=== PATIENT | female | born 1975 | race Caucasian/White ===

== ENCOUNTER → 2019-06-30 09:23 | Outpatient (BNVA) | payer OTHER, SELFPAY | PROVIDERS: Family Provider Nurse Practitioner; Visit Provider Nurse Practitioner | DX: I10 Essential (primary) hypertension (principal); E55.9 Vitamin D deficiency, unspecified; N64.52 Nipple discharge | CPT/HCPCS: 80053; 80061; 82306; 84146 ==

== ENCOUNTER → 2019-07-19 16:09 | Outpatient (BNVA) | payer OTHER, SELFPAY | PROVIDERS: Family Provider Nurse Practitioner; Visit Provider Nurse Practitioner | DX: E03.9 Hypothyroidism, unspecified (principal); Z11.59 Encounter for screening for other viral diseases | CPT/HCPCS: 84439; 84443; 84481; 86705; 86706; 86709; 86803; 87340 ==

== ENCOUNTER 2019-11-05 09:19 | Outpatient (CLI) | payer OTHER, SELFPAY ==
--- NOTE | 2019-11-05 09:24 | MR_ITS ---
WS: [id number] MRI BRAIN WITHOUT AND WITH CONTRAST, ATTENTION DIRECTED TO THE PITUITARY GLAND HISTORY: PITUITARY Mass; pituitary MICROADENOMA W/HYPERPROLACTINEMIA COMPARISON: 12/01/2017 TECHNIQUE: Diffusion-weighted imaging, axial T2 sequence, and postcontrast images in 3 planes are per formed. High-resolution coronal and sagittal imaging performed through the pituitary region with and without intravenous gadolinium. The small, 3 mm possible microadenoma seen in the RIGHT posterior pituitary is not as well visualized today. This small microadenoma may have decreased in size. There is no enlarging mass or abnormal en hancement on today's examination. Pituitary gland is normal size. No enhancing masses. There are no acute infarcts or prior hemorrhage. Supratentorial and infratentorial brain is preserved . No prior infarcts. No inferior displacement of cerebellar tonsils. The ventricles and extra-axial s paces are normal. There are no enhancing masses. No paranasal sinus or mastoid air cell disease. MR/MR pituitary wo/w con* [id number] IMPRESSION: 1. 3 mm microadenoma seen on the prior study of 12/01/2017 is not apparent today . May have decreased in size and resolved with treatment. There are no masses i n the sella turcica. The pituitary gland is negative today. 2. Otherwise MRI brain is normal.
== END 2019-11-05 09:20 | disposition home or self-care (01) ==
LOC: RADSHAW 09:23
PROVIDERS: Family Provider Nurse Practitioner; PCP Nurse Practitioner; Visit Provider Internal Medicine
DX: D35.2 Benign neoplasm of pituitary gland (principal); E22.1 Hyperprolactinemia
CPT/HCPCS: 70553; A9579

== ENCOUNTER 2019-11-05 09:25 | Outpatient (CLI) | payer OTHER, SELFPAY ==
--- NOTE | 2019-11-05 10:15 | US_ITS ---
WS: [id number] RIGHT UPPER QUADRANT ULTRASOUND HISTORY: increased liver enzymes COMPARISON: None available. Liver: 18.5 cm in length. Moderately enlarged liver with diffuse hepatic steatosis. No mass or bile d uct dilatation. Gallbladder: Prior cholecystectomy. CBD: 0.2 cm Pancreas: Pancreas is poorly visualized. Right kidney: 10.8 cm in length. Normal echogenicity with no mass or hydronephrosis. Aorta and IVC: Unremarkable. No ascites. US/US liver [id number] IMPRESSION: 1. Status post cholecystectomy. 2. Moderate hepatomegaly and hepatic steatosis.
== END 2019-11-05 09:26 | disposition home or self-care (01) ==
LOC: RAD 09:26
PROVIDERS: PCP Nurse Practitioner; Visit Provider Nurse Practitioner
DX: R74.8 Abnormal levels of other serum enzymes (principal); R16.0 Hepatomegaly, not elsewhere classified; K76.0 Fatty (change of) liver, not elsewhere classified
CPT/HCPCS: 76705

== ENCOUNTER → 2019-11-24 09:03 | Outpatient (BNVA) | payer OTHER, SELFPAY | PROVIDERS: Family Provider Nurse Practitioner; PCP Nurse Practitioner; Visit Provider Nurse Practitioner | DX: I10 Essential (primary) hypertension (principal); J45.40 Moderate persistent asthma, uncomplicated; F41.1 Generalized anxiety disorder; K21.9 Gastro-esophageal reflux disease without esophagitis; E03.9 Hypothyroidism, unspecified | CPT/HCPCS: 80053; 80061; 84443 ==

== ENCOUNTER → 2019-12-30 16:15 | Outpatient (BNVA) | payer OTHER, SELFPAY | PROVIDERS: Family Provider Nurse Practitioner; PCP Nurse Practitioner; Visit Provider Nurse Practitioner Women's Health | DX: N90.89 Other specified noninflammatory disorders of vulva and perineum (principal) | CPT/HCPCS: 88305 ==

== ENCOUNTER → 2021-02-20 08:30 | Outpatient (BNVA) | payer OTHER, SELFPAY | PROVIDERS: Family Provider Nurse Practitioner; PCP Nurse Practitioner; Referring Provider Family Medicine; Visit Provider Internal Medicine | DX: D35.2 Benign neoplasm of pituitary gland (principal); E03.9 Hypothyroidism, unspecified; E55.9 Vitamin D deficiency, unspecified; L68.0 Hirsutism; N20.0 Calculus of kidney; F17.210 Nicotine dependence, cigarettes, uncomplicated | CPT/HCPCS: 99204 ==

== ENCOUNTER 2021-03-09 08:49 | Outpatient (CLI) | payer OTHER, SELFPAY ==
[2021-03-09 09:58] LABS: Free T4 Free Thyroxine 1.05 ng/dL (0.82-1.77); Thyroid Stimulating Hormone 1.89 uIU/mL (0.27-4.20)
[2021-03-09 10:00] LABS: Calcium 9.2 mg/dL (8.5-10.5)
[2021-03-09 10:07] LABS: Parathyroid Hormone 37.7 pg/mL (15-65)
[2021-03-09 10:22] LABS: Prolactin 14.23 ng/mL (4.8-23.3)
[2021-03-10 09:02] LABS: T3 Total 144 ng/dL (76-181)
[2021-03-12 15:53] LABS: Dehydroepiandrosterone Sulfate 80 mcg/dL (19-231)
[2021-03-13 14:17] LABS: Thyroid Peroxidase Antobodies <1 IU/mL (<9)
== END 2021-03-09 08:50 | disposition home or self-care (01) ==
LOC: LAB 08:54
PROVIDERS: PCP Nurse Practitioner; Visit Provider Internal Medicine
DX: D35.2 Benign neoplasm of pituitary gland (principal); E03.9 Hypothyroidism, unspecified; E55.9 Vitamin D deficiency, unspecified; N20.0 Calculus of kidney; L68.0 Hirsutism
CPT/HCPCS: 36415; 82310; 82627; 83970; 84146; 84403; 84439; 84443; 84480; 86376

== ENCOUNTER → 2021-05-04 09:16 | Outpatient (BNVA) | payer OTHER, SELFPAY | PROVIDERS: PCP Nurse Practitioner; Visit Provider Internal Medicine | DX: D35.2 Benign neoplasm of pituitary gland (principal); E03.9 Hypothyroidism, unspecified; E55.9 Vitamin D deficiency, unspecified; L68.0 Hirsutism | CPT/HCPCS: 84439; 84443; 84480 ==

== ENCOUNTER → 2021-09-10 08:46 | Outpatient (BNVA) | payer OTHER, SELFPAY | PROVIDERS: PCP Nurse Practitioner; Visit Provider Internal Medicine | DX: D35.2 Benign neoplasm of pituitary gland (principal); E03.9 Hypothyroidism, unspecified | CPT/HCPCS: 84146; 84439; 84443; 84480 ==

== ENCOUNTER 2022-02-11 15:20 | Outpatient (CLI) | payer OTHER, SELFPAY ==
--- NOTE | 2022-02-11 15:15 | MR_ITS ---
WS: [id number] MRI BRAIN WITHOUT AND WITH CONTRAST, ATTENTION DIRECTED TO THE PITUITARY GLAND HISTORY: pituitary adenoma COMPARISON: 11/05/2019 and 12/01/2017 TECHNIQUE: Diffusion-weighted imaging, axial T2 sequence, and postcontrast images in 3 planes are per formed. High-resolution coronal and sagittal imaging performed through the pituitary region with and without intravenous gadolinium. MultiHance 20 mL IV. Previously described small pituitary microadenoma is not identified. Pre and postcontrast high-resolu tion imaging through the pituitary gland demonstrates no mass. This mass was also not identified on t he most recent exam of 11/05/2019. Initially described on 12/01/2017. No significant change in size of t he residual pituitary gland. No area of decreased enhancement in the sella turcica. Normal appearance of the brain. No areas of hemorrhage. No acute or remote infarct. Ventricles are no rmal size. No ischemic changes or atrophy. Paranasal sinuses and mastoid air cells are normal. No calvarial abnormality. MR/MR pituitary wo/w con* [id number] IMPRESSION: 1. No residual pituitary microadenoma is identified. 2. Normal size of the remaining pituitary gland. 3. No acute infarcts or hemorrhage.
[2022-02-11] MEDS: gadobenate dimeglumine 20 mL vial IV (16:43)
[2022-02-11 23:32] LABS: Alanine Aminotransferase 13 U/L (0-33); Alkaline Phosphatase 114 U/L (35-105); Anion Gap 12.8 (5-19); Aspartate Amino Transferase 13 U/L (0-32); Blood Urea Nitrogen 14 mg/dL (6-20); Calcium 9.1 mg/dL (8.5-10.5); Carbon Dioxide 24 mmol/L (22-29); Chloride 103 mmol/L (98-107); Chol HDL Ratio 4.92 mg/dL (0.0-4.40); Cholesterol 192 mg/dL (0-200); Globulin 2.8 g/dL (1.3-4.6); Glomerular Filtration Rate 67.7 mL/min (90-130); Glucose 120 mg/dL (65-115); HDL Cholesterol 39 mg/dL (60-100); LDL Cholesterol Calculated 124 mg/dL (50-129); LDL HDL Ratio 3.18 RATIO (0.00-3.22); Osmolality Calculated 284 mOsm/kg (285-295); Potassium 3.8 mmol/L (3.5-5.1); Sodium 136 mmol/L (136-145); Thyroid Stimulating Hormone 1.69 uIU/mL (0.27-4.20); Total Bilirubin 0.2 mg/dL (0.15-1.2); Total Protein 6.8 g/dL (6.6-8.7); Triglycerides 144 mg/dL (0-150)
[2022-02-12 01:19] LABS: Prolactin 15.11 ng/mL (4.8-23.3)
== END 2022-02-11 15:21 | disposition home or self-care (01) ==
PROVIDERS: PCP Nurse Practitioner Family; Visit Provider Internal Medicine
DX: E78.2 Mixed hyperlipidemia (principal); K76.0 Fatty (change of) liver, not elsewhere classified; D35.2 Benign neoplasm of pituitary gland; E03.9 Hypothyroidism, unspecified
CPT/HCPCS: 36415; 70553; 80053; 80061; 84146; 84439; 84443

== ENCOUNTER → 2022-02-20 08:56 | Outpatient (BNVA) | payer OTHER, SELFPAY | PROVIDERS: PCP Nurse Practitioner Family; Visit Provider Nurse Practitioner Family | DX: E78.2 Mixed hyperlipidemia (principal); E88.81 Metabolic syndrome and other insulin resistance; E66.9 Obesity, unspecified; R73.9 Hyperglycemia, unspecified; K76.0 Fatty (change of) liver, not elsewhere classified; E55.9 Vitamin D deficiency, unspecified; F41.1 Generalized anxiety disorder; E03.9 Hypothyroidism, unspecified; M54.41 Lumbago with sciatica, right side; M54.42 Lumbago with sciatica, left side; N39.0 Urinary tract infection, site not specified; B37.9 Candidiasis, unspecified; N18.2 Chronic kidney disease, stage 2 (mild) | CPT/HCPCS: 80053; 82306; 83036 ==

== ENCOUNTER → 2022-08-29 11:12 | Outpatient (BNVA) | payer OTHER, SELFPAY | PROVIDERS: PCP Nurse Practitioner Family; Visit Provider Internal Medicine | DX: L68.0 Hirsutism (principal); D35.2 Benign neoplasm of pituitary gland; E03.9 Hypothyroidism, unspecified; E88.81 Metabolic syndrome and other insulin resistance | CPT/HCPCS: 80053; 80061; 83036; 84146; 84439; 84443 ==

== ENCOUNTER 2023-10-29 17:11 | Outpatient (CLI) | payer OTHER, SELFPAY ==
[2023-10-29 18:09] LABS: Estradiol 54.3 pg/mL; Follicle Stimulating Hormone 30.4 mIU/mL; Thyroid Stimulating Hormone 1.79 uIU/mL (0.27-4.20)
[2023-10-29 21:34] LABS: Free T4 Free Thyroxine 1.01 ng/dL (0.82-1.77); T3 Free 2.9 PG/ML (2.0-4.4); Testosterone Total 6.2 ng/dL (8.4-48.1)
== END 2023-10-29 17:12 | disposition home or self-care (01) ==
LOC: LAB 17:14
PROVIDERS: PCP Nurse Practitioner Family; Visit Provider Nurse Practitioner Family
DX: E03.9 Hypothyroidism, unspecified (principal); Z79.890 Hormone replacement therapy
CPT/HCPCS: 36415; 82670; 83001; 84403; 84439; 84443; 84481

== ENCOUNTER 2024-02-02 08:36 | Outpatient (CLI) | payer OTHER, SELFPAY ==
[2024-02-02 09:18] LABS: Basophils # 0.1 10^3/uL (0.0-0.1); Basophils % 0.6 %; Eosinophils # 0.1 10^3/uL (0.0-0.8); Eosinophils % 1.7 %; Hematocrit 43.6 % (36-47); Lymphocytes # 2.7 10^3/uL (0.8-4.8); Lymphocytes % 31.8 %; Mean Corpuscular HGB Conc 32.1 g/dL (30-55); Mean Corpuscular Hemoglobin 26.5 pg (27-33); Mean Corpuscular Volume 82.4 fl (85-98); Mean Platelet Volume 10.1 fL (7.4-10.4); Monocytes # 0.5 10^3/uL (0.2-0.9); Monocytes % 6.4 %; Neutrophils # 4.95 10^3/uL (1.8-7.7); Nucleated Red Blood Cells % 0 %; Platelet Count 329 10^3/cmm (157-399); Red Blood Count 5.29 10^6/uL (3.85-5.65); Red Cell Distribution Width 14.2 % (12.1-15.1); White Blood Count 8.39 10^3/uL (3.29-11.43)
[2024-02-02 09:48] LABS: Estmated Average Glucose 111; Hemoglobin A1C 5.5 % (4.0-6.0)
[2024-02-02 09:50] LABS: Alanine Aminotransferase 20 U/L (0-33); Albumin Level 4.3 g/dL (3.5-5.2); Alkaline Phosphatase 123 U/L (35-105); Anion Gap 10.8 (5-19); Aspartate Amino Transferase 18 U/L (0-32); Blood Urea Nitrogen 12 mg/dL (6-20); Calcium 8.9 mg/dL (8.5-10.5); Carbon Dioxide 25 mmol/L (22-29); Chloride 105 mmol/L (98-107); Chol HDL Ratio 4.18 mg/dL (0.0-4.40); Cholesterol 163 mg/dL (0-200); Free T4 Free Thyroxine 1.19 ng/dL (0.82-1.77); Globulin 2.9 g/dL (1.3-4.6); Glomerular Filtration Rate 67.1 mL/min (90-130); Glucose 91 mg/dL (65-115); HDL Cholesterol 39 mg/dL (60-100); LDL Cholesterol Calculated 108 mg/dL (50-129); LDL HDL Ratio 2.77 RATIO (0.00-3.22); Osmolality Calculated 283 mOsm/kg (285-295); Potassium 3.8 mmol/L (3.5-5.1); Sodium 137 mmol/L (136-145); T3 Free 4.2 PG/ML (2.0-4.4); Testosterone Total 19.1 ng/dL (8.4-48.1); Thyroid Stimulating Hormone 0.87 uIU/mL (0.27-4.20); Total Bilirubin 0.5 mg/dL (0.15-1.2); Total Protein 7.2 g/dL (6.6-8.7); Triglycerides 82 mg/dL (0-150)
[2024-02-02 10:24] LABS: 25 Hydroxy Vitamin D 59 ng/mL (30-100); Estradiol 15.7 pg/mL; Follicle Stimulating Hormone 66.7 mIU/mL; Vitamin B12 1222 pg/mL (232-1245)
== END 2024-02-02 08:37 | disposition home or self-care (01) ==
LOC: LAB 08:37
PROVIDERS: PCP Nurse Practitioner Family; Visit Provider Nurse Practitioner Family
DX: E03.9 Hypothyroidism, unspecified (principal); Z79.890 Hormone replacement therapy; R73.03 Prediabetes; E78.5 Hyperlipidemia, unspecified; E53.8 Deficiency of other specified B group vitamins; E55.9 Vitamin D deficiency, unspecified
CPT/HCPCS: 36415; 80053; 80061; 82306; 82607; 82670; 83001; 83036; 84403; 84439; 84443; 84481; 85025

== ENCOUNTER 2024-12-29 08:04 | Outpatient (CLI) | payer OTHER, SELFPAY ==
[2024-12-29 08:57] LABS: Hematocrit 39.0 % (36-47); Hemoglobin 12.50 g/dL (11.27-16.99); Mean Corpuscular HGB Conc 32.1 g/dL (30-55); Mean Corpuscular Hemoglobin 26.2 pg (27-33); Mean Corpuscular Volume 81.6 fl (85-98); Nucleated Red Blood Cells % 0 %; Platelet Count 287 10^3/cmm (157-399); Red Blood Count 4.78 10^6/uL (3.85-5.65); White Blood Count 10.22 10^3/uL (3.29-11.43)
[2024-12-29 09:14] LABS: Estmated Average Glucose 114; Hemoglobin A1C 5.6 % (4.0-6.0)
[2024-12-29 09:36] LABS: Alanine Aminotransferase 24 U/L (0-33); Albumin Level 4.1 g/dL (3.5-5.2); Alkaline Phosphatase 114 U/L (35-105); Anion Gap 14.1 (5-19); Aspartate Amino Transferase 23 U/L (0-32); Blood Urea Nitrogen 12 mg/dL (6-20); Calcium 9.1 mg/dL (8.5-10.5); Carbon Dioxide 25 mmol/L (22-29); Chloride 104 mmol/L (98-107); Cholesterol 188 mg/dL (0-200); Ferritin 84 ng/mL (15-150); Globulin 2.9 g/dL (1.3-4.6); Glucose 112 mg/dL (65-115); HDL Cholesterol 45 mg/dL (60-100); Magnesium 2.0 mg/dL (1.7-2.3); Osmolality Calculated 289 mOsm/kg (285-295); Potassium 4.1 mmol/L (3.5-5.1); Sodium 139 mmol/L (136-145); Thyroid Stimulating Hormone 0.72 uIU/mL (0.27-4.20); Total Protein 7.0 g/dL (6.6-8.7); Triglycerides 96 mg/dL (0-150)
[2024-12-29 10:02] LABS: Free T4 Free Thyroxine 0.89 ng/dL (0.82-1.77)
[2024-12-30 07:45] LABS: EBV IGG TEST 198.00 U/mL; EBV IGM TEST <36.00 U/mL
[2024-12-30 08:04] LABS: Lymes IGG WB <0.90 index
[2024-12-30 09:46] LABS: Triiodothyronine Uptake 31 % (22-35)
== END 2024-12-29 08:05 | disposition home or self-care (01) ==
LOC: LAB 08:05
PROVIDERS: PCP Nurse Practitioner Family; Visit Provider Nurse Practitioner Family
DX: R63.8 Other symptoms and signs concerning food and fluid intake (principal); R53.83 Other fatigue; E28.2 Polycystic ovarian syndrome; F41.9 Anxiety disorder, unspecified
CPT/HCPCS: 36415; 80053; 80061; 82306; 82728; 83036; 83090; 83735; 84436; 84439; 84443; 84479; 84481; 84482; 85025; 86003; 86008; 86038; 86140; 86337; 86376; 86617; 86664; 86665